=== PATIENT | male | born 1930 | race Caucasian/White ===

== ENCOUNTER 2016-10-07 13:43 | Emergency (ER) | payer MEDICARE, OTHER ==
[~2016-10-07] VITALS: Ht 170.2 cm; Wt 100.0 kg
[~2016-10-07 13:43] MED LIST: ASPI-973 PO; CEPH500C PO; FUR20 PO; FURO-129 PO; POTA10CA42 PO
[2016-10-07 13:46] VITALS: BP 155/84; PULSE 86; RESP 16; O2SAT 99
--- NOTE | 2016-10-07 14:48 | ED.REPORT ---
HPI-Extremity Problem Lower Date of Service Oct 07, 2016 ED Provider: Bushra Mcmahon History of Present Illness: right foot 3 rd toe ongoing for 3 weeks, stubbed toe. seen [place] [facility] [place] [facility]. denies diabeties. toenails are thickened. Toe is painful. Noticed some pus coming out from under nail. hx of kidney issues Nursing Notes Stated Complaint: RIGHT TOE PAIN Chief Complaint: Extremity Trauma Nursing Notes Reviewed: Yes Allergies: Coded Allergies: No Known Allergies (Verified Allergy, Unknown, 11/17/15) Scheduled Aspirin (Aspirin) 81 Mg Tablet 81 MG PO DAILY Furosemide (Lasix) 20 Mg Tablet 20 MG PO DAILY Potassium Chloride (Potassium Chloride) 10 Meq Capsule.er 10 MEQ PO DAILY TAKE WITH FOOD Scheduled PRN Cephalexin (Cephalexin) 500 Mg Capsule 500 MG PO TID PRN PRN cellulitis Furosemide (Furosemide) 20 Mg Tab 20 MG PO DAILY PRN PRN leg swelling General Time Seen by MD: 14:47 Chief Complaint Toe injury right 3 Hx Obtained From: Patient Onset Occurred: More than a week ago... (3 weeks) Symptom Duration: Since onset Past Medical History Past Medical History Notes: Last Admit - NSTEMI 05/2012 [place] patient Past Medical History Coronary artery disease History of gallstone pancreatitis History of shrapnel injuries to the head and needs Osteoarthritis of the hip Hypertension Obstructive sleep apnea Past Surgical History Reports: Appendectomy Smoking History Former Smoker Social History Alcohol Use: Denies alcohol use Drug Use: Denies drug use Other Social History: Local resident Occupation , lives with son. Ambulatory Status Independent Review of Systems Basic Review of Systems Eyes: Vision NL, No discharge Respiratory: No shortness of breath, No cough, No wheeze Psychiatric: Normal thought content Physical Exam Initial Vital Signs Vital Signs (First) Date Time Temp Pulse Resp B/P Pulse Ox O2 Delivery O2 Flow Rate FiO2 10/07/16 13:46 36.2 86 16 155/84 99 Room Air Initial VS: Reviewed, Vital signs normal General/Constitutional: Well-developed, Well-nourished Head / Eyes: Atraumatic, Normocephalic, PERRL ENT: Mucous membranes moist, Conjunctiva normal, No scleral icterus Neck: Supple, Non-tender, Full range of motion Respiratory: Breath sounds normal, Clear to auscultation, No respiratory distress Cardiovascular: Regular rate & rhythm, Heart sounds normal, Intact distal pulses Abdomen / GI: Soft, Non-tender, No guarding, No rebound, No distention Back: No CVA tenderness Lymphatic: No lymphadenopathy Upper Extremities: Vascular intact, Neuro intact, No swelling, No tenderness Skin: Warm, Dry, No cyanosis Neurologic: Alert, Oriented, Nonfocal Psychiatric: Mood/affect normal, Behavior normal, Normal thought content Lower Extremity / Pelvis / MS: Atraumatic, Inspection NL, Full range of motion lower extremities have pitting edema with erthyma but no increased warmth bilateral. after having his feet up for 30 minutes, huge decrease in swelling and erthyma right 3rd toe is red, tender to touch. Toenail is thickened and does not appear to be attached to the nail bed, only at the base of the nail. General/Constitutional: Awake, Alert, No acute distress, Well appearing, Well developed Respiratory / Chest: Atraumatic, Breath sounds NL, Breath sounds = bilat, No respiratory distress Cardiovascular: Heart rate NL, Regular rhythm, Heart sounds NL, No gallop Interpretation & Diagnostics Lab Results Interpretation Result Diagram: 10/07/16 1530 10/07/16 1530 Test 10/07/16 15:30 White Blood Count 9.3th/mm3 (3.8-10.1) Red Blood Count 4.92mil/mm3 (4.40-5.80) Hemoglobin 14.1g/dL (13.8-17.2) Hematocrit 42.5% (41.0-50.0) Mean Corpuscular Volume 86.4fL (81-100) Mean Corpuscular Hemoglobin 28.7pg (27.0-35.0) Mean Corpuscular Hemoglobin Concent 33.2% (32.0-37.0) Red Cell Distribution Width 14.9% (12.3-15.4) Platelet Count 229bil/L (150-400) Neutrophils (%) (Auto) 74.4% (40-74) Lymphocytes (%) (Auto) 16.6% (14-46) Monocytes (%) (Auto) 7.0% (4-12) Eosinophils (%) (Auto) 1.5% (0-5) Basophils (%) (Auto) 0.3% (0-3) Sodium Level 138mEq/L (134-144) Potassium Level 4.2mEq/L (3.5-5.2) Chloride Level 99mEq/L (97-108) Carbon Dioxide Level 25mmol/L (18-29) Blood Urea Nitrogen 22mg/dL (8-27) Creatinine 1.40mg/dL (0.76-1.27) Estimat Glomerular Filtration Rate 51mL/min (>59) Glucose Level 124mg/dL (60-99) Calcium Level 8.8mg/dL (8.5-10.1) Total Bilirubin 0.7mg/dL (0.0-1.2) Aspartate Amino Transf (AST/SGOT) 15U/L (0-50) Alanine Aminotransferase (ALT/SGPT) 10U/L (0-44) Alkaline Phosphatase 159U/L (25-160) Total Protein 7.2g/dL (6.4-8.4) Albumin 3.8g/dL (3.4-5.0) Hold Mckinney Top Tube Received (Received) X-Ray Interpretation Xray Interpretation: COMPARISON: [facility], , FOOT COMP MIN 3VW (RT), 09/21/2006, 13:06. FINDINGS: Bones: No fractures or dislocations. No suspicious bony lesions. Moderate first MTP and diffuse interphalangeal joint narrowing. Degenerative changes in the midfoot. Calcaneal spurring. Soft tissues: No tibiotalar joint effusion. Achilles tendon appears normal. Vascular calcifications indicate atherosclerosis. IMPRESSION: Although no bony erosions are identified, plain film radiography is relatively insensitive in the acute phases of osteomyelitis and may not demonstrate radiographic changes for 15 days. If acute osteomyelitis is of clinical concern, nuclear medicine regional bone scan or MRI is recommended. No displaced fracture seen. If there is continued pain, followup exam or additional imaging such as MRI or CT could be performed for further assessment Osteoarthritic changes. Dictated by: Juma STEWART Interpreted: Iveth Damian MD on 10/07/2016 at 15:48 Transcribed by: AMMON on 10/07/2016 at 15:49 Procedures Ingrown Toenail Removal Ingrown Toenail Removal: right 3rd toe Time: 16:30 Procedure Performed by: Allied health pract Indication: Pain, Erythema, Infection Consent / Setup / Site Prep: Informed consent provided, Consent from patient , Time-out performed, Hand hygiene observed Skin Preparation Agent: Betadine Digit Involved: 3rd toe right Digital Block Procedure: Two digital nerve block, Lidocaine 1%, 4cc, 27g needle, Dorsal approach, Anesthesia obtained Removal Procedure: Entire nail seg removed Post-Procedure / Complications: Antibiotic oint applied, Dressing placed, No complications, Condition improved, Tolerated procedure well, Patient stable Re-Eval/Medical Decision Med Decision/Clinical Course 86 year old presents for evualation of right 3rd toe pain. Reports jammed it about 3 weeks ago and pain has continued. X-ray is negative. Labs are normal. While removing the nail, there is a small pocket of discharge at tip of toe. washed well. No active bleeding. No sign of compartment syndrome or abscess Discharge & Departure Impression: Primary Impression: Infection of toenail Disposition: Home Additional Instructions: Your labs are looking good. I have added a test on for diabetes, an A1C. If it comes back positive, we will call you. The x-ray is negative for fracture. The toenail was removed without difficulty. Elevate your foot as much as possible. Use keflex 500 mg 3 times a day for 7 days. Use ibuprofen 400 mg 3 times a day for 3 days. Use 1/2 of a vicodin at night for severe unrelenting pain. Please follow with Dr. Liang for a recheck. Referrals: [facility] (PCP) Lashawn Liang DPM EDSupervising Provider for APC: Adonis Madrid MD copies to: [facility] Bushra Mcmahon Oct 07, 2016 14:48
[2016-10-07 15:50] LABS: BASOPHILS % (AUTO) 0.3 % (0-3); EOSINOPHILS % (AUTO) 1.5 % (0-5); Mean Corpuscular Hemoglobin 28.7 pg (27.0-35.0); Mean Corpuscular Volume 86.4 fL (81-100); NEUTROPHILS % (AUTO) 74.4 % (40-74); Platelet Count 229 bil/L (150-400)
--- NOTE | 2016-10-07 15:50 | DRSVH ---
PROCEDURE: X-RAY RIGHT FOOT COMPLETE, MINIMUM THREE VIEWS ([id number]) INDICATIONS: jammed toe 3rd pain TECHNIQUE: 3 views of the foot were acquired. COMPARISON: [facility], , FOOT COMP MIN 3VW (RT), 09/21/2006, 13:06. FINDINGS: Bones: No fractures or dislocations. No suspicious bony lesions. Moderate first MTP and diffuse in terphalangeal joint narrowing. Degenerative changes in the midfoot. Calcaneal spurring. Soft tissues: No tibiotalar joint effusion. Achilles tendon appears normal. Vascular calcification s indicate atherosclerosis. IMPRESSION: Although no bony erosions are identified, plain film radiography is relatively insensitive in the acu te phases of osteomyelitis and may not demonstrate radiographic changes for 15 days. If acute osteom yelitis is of clinical concern, nuclear medicine regional bone scan or MRI is recommended. No displaced fracture seen. If there is continued pain, followup exam or additional imaging such as MRI or CT could be performed for further assessment Osteoarthritic changes. Dictated by: Juma Castro [facility] Interpreted: Iveth Damian MD on 10/07/2016 at 15:48 Transcribed by: AMMON on 10/07/2016 at 15:49 Approved by: Iveth Damian MD, PhD on 10/07/2016 at 16:14
== END 2016-10-07 17:01 | disposition home or self-care (01) ==
LOC: SED 13:43
DX: L03.031 Cellulitis of right toe (principal); I25.10 Atherosclerotic heart disease of native coronary artery without angina pectoris; I10 Essential (primary) hypertension; Z87.891 Personal history of nicotine dependence; Z79.82 Long term (current) use of aspirin